=== PATIENT | male | born 1955 | race Caucasian/White ===

== ENCOUNTER → 2020-02-05 09:12 | Outpatient (CLI) | payer OTHER, SELFPAY ==
--- NOTE | ~2020-02-05 | XR_ITS ---
EXAMINATION: XR knee LT min 4V DATE: 02/05/2020 09:37 INDICATION: Left knee pain. TECHNIQUE: 4 views of left knee were obtained. COMPARISON: None. FINDINGS: Bone alignment is normal. No fracture. There is mild tricompartmental osteoarthritis. There is a moderate-sized knee joint effusion. There is a 6 mm loose body in the posterior knee joint. IMPRESSION: 1. Mild left knee osteoarthritis. 2. Moderate-sized knee joint effusion with loose body. Reviewed, dictated and finalized at location A.
== END ==
PROVIDERS: PCP Family Medicine; Visit Provider Physician Assistant
DX: M17.12 Unilateral primary osteoarthritis, left knee (principal); M25.462 Effusion, left knee
CPT/HCPCS: 73564

== ENCOUNTER 2020-04-28 08:41 | Outpatient (NON) | payer OTHER, SELFPAY ==
[2020-04-28 20:58] LABS: SARS-CoV-2 RNA PCR Negative
== END 2020-04-28 08:42 ==
LOC: ANHCOVIDDT 08:43
PROVIDERS: PCP Family Medicine; Visit Provider Family Medicine
DX: R68.89 Other general symptoms and signs (principal); Z20.828 Contact with and (suspected) exposure to other viral communicable diseases
CPT/HCPCS: 87635; C9803; U0003

== ENCOUNTER 2022-03-04 12:02 | Outpatient (CLI) | payer MEDICARE, SELFPAY ==
--- NOTE | 2022-03-04 13:03 | ECG_ITS ---
Measurements Intervals [place] Rate: 76 P: -13 CA: 141 QRS: -39 QRSD: 101 T: 30 QT: 354 QTc: 400 Interpretive Statements SINUS RHYTHM LEFT AXIS DEVIATION INCOMPLETE RIGHT BUNDLE BRANCH BLOCK BASELINE ARTIFACT- I, II, III, AVR, AVL, AVF BORDERLINE ECG NO PREVIOUS ECG AVAILABLE FOR COMPARISON Electronically Signed On 03-04-2022 13:29:04 CDT by Paulie Tapia D.O.
[2022-03-04 13:31] LABS: Basophils Percent Auto 0.9 % (0.2-1.2); Eosinophils Absolute Auto 0.1 K/mm3 (0-0.3); Eosinophils Percent Auto 3.1 % (0-4.4); Hematocrit 48.7 % (42.0-52.0); Hemoglobin 16.3 g/dL (14.0-18.0); Immature Granulocyte Absolute 0.03 K/mm3 (0.00-0.031); Immature Granulocyte Percent A 0.7 % (0-0.5); Lymphocytes Absolute Auto 1.31 K/mm3 (0.9-3.2); Lymphocytes Percent Auto 29.3 % (18.3-44.2); Mean Corpuscular HGB Conc 33.5 g/dl (32-36); Mean Corpuscular Hemoglobin 31.2 pg (26-34); Mean Corpuscular Volume 93.1 fl (80-100); Monocytes Absolute Auto 0.8 K/mm3 (0.1-0.6); Monocytes Percent Auto 18.8 % (2.6-8.5); Neutrophils Absolute Auto 2.1 K/mm3 (1.3-6.7); Neutrophils Percent Auto 47.2 % (45.5-73.1); Platelet Count Result 190 k/mm3 (150-375); Red Blood Count 5.23 M/mm3 (4.6-6.20); Red Cell Distribution Width 12.5 % (11.5-14.5); White Blood Count 4.5 K/mm3 (4.5-10.0)
[2022-03-04 13:48] LABS: Albumin Level 4.6 g/dL (3.5-5.1); Anion Gap 13 mmol/L (8-16); Blood Urea Nitrogen 10 mg/dL (9-20); Calcium 9.2 mg/dL (8.4-10.2); Carbon Dioxide 29 mmol/L (22-30); Chloride 99 mmol/L (98-107); Estimated Glomerular Filt Rate > 60; Glucose 98 mg/dL (65-110); Potassium 4.1 mmol/L (3.4-5.0); Sodium 141 mmol/L (137-145)
[2022-03-04 13:51] LABS: Urine Cotinine NEGATIVE
== END 2022-03-04 12:03 | disposition home or self-care (01) ==
LOC: ANHSURGERY 12:09
PROVIDERS: PCP Family Medicine; Visit Provider Orthopaedic Surgery
DX: M17.12 Unilateral primary osteoarthritis, left knee (principal); Z01.818 Encounter for other preprocedural examination
CPT/HCPCS: 80048; 80307; 82040; 85025; 87070; 87147; 87181; 87186; 93005

== ENCOUNTER 2022-03-24 01:23 | Day surgery (SDC) | payer MEDICARE, SELFPAY ==
--- NOTE | 2022-03-04 11:38 | PC.NURSE ---
PRE-OP INSTRUCTIONS, PLEASE READ CAREFULLY Report to the Outpatient Waiting Room, entrance under the green pavilion located off [facility], at time _1000_ on date _03/24/22_. OR Time: _1200_. PACK A SMALL OVERNIGHT BAG AND LEAVE IN THE CAR ALONG WITH YOUR WALKER. Time changes happen often and if your time is changed the preop area will call you the afternoon before. - You and your visitor will be asked to self-screen and do not enter if you have any COVID symptoms. - A mask is required within the hospital. - Only one visitor and NO children visitors are allowed at this time. - The patient visitor is requested to leave or wait in car when not with patient due to restrictions. - VISITING HOURS 10AM-8PM, PARK IN FRONT PARKING LOT AND USE MAIN HOSPITAL ENTRANCE 1 Patients may have clear liquids (water, carbonated beverages, clear teas, apple juice) until 3 hours prior to surgery (0900 AM) with a maximum of 20 ounces. - No food from midnight until time of surgery Take the following medications with a SIP of water the morning of surgery: _TYLENOL IF NEEDED_ Medications to discontinue per physician _ALEVE 7 DAYS PRIOR TO SURGERY_, Date to take last dose 03/16/22_ Please no deodorant, or body powder the day of surgery. No jewelry (including any body piercings) or valuables the day of surgery, leave them at home. Please take a shower or bath the night before, or the morning of, surgery with an antibacterial soap. Wear comfortable, loose fitting clothing. - Jewelry must be removed prior to entering the operating room. Rings and piercings that are not removed may be cut off. - The hospital will not accept responsibility for valuables. - Please leave all valuables, including medications, at home the day of surgery. If you are going home after surgery, a licensed delivery truck driver heavy must drive you home. - NO public transportation without another adult. - We recommend that an adult stay with you for 24 hours following discharge. - We also recommend that you do not drive, make important decision, drink alcoholic beverages, or take any drugs that were not prescribed by your health care provider for at least 24 hours after your discharge time. Follow any additional instructions given to you from your surgeon. If you or anyone in your household have experienced Covid symptoms in the past week, please notify your surgeon or the nurse liaison at the phone number below for possible testing. Instructions given to _PT & SPOUSE (ISA) _and asked if any additional questions and then verbalized understanding. Patient advised to call surgeon office or pre surgery nurse liaison [phone] if any additional questions.
[2022-03-04 12:36] VITALS: BP 164/78; PULSE 74; RESP 20; TEMP 37.4; O2SAT 97; BMI 32.4
--- NOTE | 2022-03-22 12:55 | PM.IMHP ---
H&P: HPI History of Present Illness Date/Time: 03/22/22 12:55 <BRIE Bowie - Last Filed: 03/22/22 13:00> Chief Complaint: Left knee DJD <BRIE Bowie - Last Filed: 03/22/22 13:00> Narrative: 66-year-old male who presents today for left total knee arthroplasty. She has been having pain in his knee for years. He has been getting cortisone injections and using [id number] anti-inflammatories. He has had continued symptoms in the knee. Nonsurgical treatment is not working well for him. He has pain on a daily basis which is affecting his daily lifestyle. He has severe medial compartment osteoarthritis in the left knee and feels at this point is ready to proceed with total knee arthroplasty rather continue nonsurgical treatment. His last shot been over 5 months ago. <BRIE Bowie - Last Filed: 03/22/22 13:00> Review of Systems Review of Systems: All systems reviewed & are unremarkable except as noted in HPI and below <BRIE Bowie - Last Filed: 03/22/22 13:00> [facility] Past Medical History Medical History: Medical History (Updated 03/24/22 @ 08:05 by Demario Powell DO) Arthritis of knee, left Erectile dysfunction Hypertension Restless leg syndrome Sleep apnea in adult Vertigo <BRIE Bowie - Last Filed: 03/22/22 13:00> Family History Family History: Family History Father Diabetes mellitus Hypertension Family history of malignant neoplasm Sibling Family history of elevated blood lipids Mother Family history of cardiovascular disease Family history of coronary artery disease Other Family history of arthritis Family history of lung disease <BRIE Bowie - Last Filed: 03/22/22 13:00> Social History Social History: Social History Smoking status: Never smoker Second hand tobacco smoke exposure: No Additional smoking assessment comments: PT DENIES ALL FORMS OF TOBACCO USE Alcohol intake: current Drinks per week: 3 Substance use: never Substance use type: does not use Living arrangements: with family Gender identity (if verbalized by the patient): Male Spiritual care concerns: No <BRIE Bowie - Last Filed: 03/22/22 13:00> Meds Home Medications and Allergies Home medications: Home Medications Medication Instructions Recorded Confirmed Type tadalafil 20 mg tablet (Cialis) 20 mg PO DAILY PRN sexual activity 12/31/20 03/24/22 Rx #27 tabs olmesartan 40 mg tablet 40 mg PO DAILY #90 tabs 01/15/22 03/24/22 Rx acetaminophen 500 mg tablet 1,000 mg PO QID PRN Pain 03/04/22 03/24/22 History naproxen sodium 220 mg tablet 220 mg PO Q12H PRN Pain 03/04/22 03/24/22 History (Aleve) rabeprazole 20 mg tablet,delayed 20 mg PO EVERY OTHER DAY 03/04/22 03/24/22 History release <BRIE Bowie - Last Filed: 03/22/22 13:00> Allergies/Adverse reactions: Allergies Allergy/AdvReac Type Severity Reaction Status Date / Time lisinopril Allergy Unknown Cough Verified 03/24/22 11:23 <BRIE Bowie - Last Filed: 03/22/22 13:00> Exam Narrative: 66-year-old male alert pleasant. He is 6 ft 3 and 258 lb. Left knee range of motion is from 3-130 degrees. Moderately large effusion. Hip range motion is full without discomfort, negative Stinchfield maneuver. Normal quad strength. Normal sensation. Mild varus alignment when he walks. 2+ dorsalis pedis and posterior artery pulse. There is no edema in either lower extremity. Mild tenderness over the medial joint line palpation moderately severe pain with patellofemoral grind. <BRIE Bowie - Last Filed: 03/22/22 13:00> Resp: Auscultation: clear to auscultation bilaterally <BRIE Bowie - Last Filed: 03/22/22 13:00> Cardio: Rate: regular rate <BRIE Bowie - Last Filed: 03/22/22 13:00> Rhythm: r
[2022-03-24] VITALS (8 sets, daily range): BP systolic 140–168; BP diastolic 79–98; PULSE 83–105; RESP 16–18; TEMP 36.4–36.5; O2SAT 96–100; BMI 33.1
--- NOTE | ~2022-03-24 | XR_ITS ---
EXAM: XR knee LT 2V DATE: 03/24/2022 18:22 HISTORY: LT TOTAL KNEE POST OP . COMPARISON: 02/05/2020. FINDINGS: Interval left knee total arthroplasty, hardware components are in good position, no compli cation detected. Postsurgical changes in the soft tissues. No unexpected radiopaque foreign body. IMPRESSION: Expected postsurgical changes, with no radiographic evidence of procedure or hardware rel ated complication. Reviewed, dictated and finalized at location K. IMPRESSION: Expected postsurgical changes, with no radiographic evidence of pro cedure or hardware related complication.
--- NOTE | 2022-03-24 08:04 | WPDANESEPPF ---
Anes - Initial Pre Proc Eval Procedure: Operation Date: 03/24/22 12:00 Proposed Procedures p Left Total Knee Arthroplasty - Paco Rodriguez MD Date/Time: 03/24/22 08:04 Surgeon: Paco Rodriguez MD Pre Op Diagnosis: Lt Knee O.A. Patient Data Age: 66 Gender: M Height: 1.91 m Weight: 117.8 kg Last Vital Signs Temp 37.4 C 03/04/22 12:36 Pulse 74 03/04/22 12:36 Resp 20 03/04/22 12:36 BP 164/78 H 03/04/22 12:36 Pulse Ox 97 03/04/22 12:36 O2 Del Method Room Air 03/04/22 12:36 Allergies Allergy/AdvReac Type Severity Reaction Status Date / Time lisinopril Allergy Unknown Cough Verified 03/24/22 11:23 Home Medications Medication Instructions Recorded Confirmed Type tadalafil 20 mg tablet (Cialis) 20 mg PO DAILY PRN sexual activity 12/31/20 03/24/22 Rx #27 tabs olmesartan 40 mg tablet 40 mg PO DAILY #90 tabs 01/15/22 03/24/22 Rx acetaminophen 500 mg tablet 1,000 mg PO QID PRN Pain 03/04/22 03/24/22 History naproxen sodium 220 mg tablet 220 mg PO Q12H PRN Pain 03/04/22 03/24/22 History (Aleve) rabeprazole 20 mg tablet,delayed 20 mg PO EVERY OTHER DAY 03/04/22 03/24/22 History release Patient hx anesthesia problems: none Family hx anesthesia problems: none Results Review: All pre-operative results and documents have been reviewed as part of the pre-operative evaluation. ON LICENSE OF [facility] Past Medical History Medical History (Updated 03/24/22 @ 08:05 by Demario Powell DO) Arthritis of knee, left Erectile dysfunction Hypertension Restless leg syndrome Sleep apnea in adult Vertigo Family History Family History Father Diabetes mellitus Hypertension Family history of malignant neoplasm Sibling Family history of elevated blood lipids Mother Family history of cardiovascular disease Family history of coronary artery disease Other Family history of arthritis Family history of lung disease Social History Social History Smoking status: Never smoker Second hand tobacco smoke exposure: No Additional smoking assessment comments: PT DENIES ALL FORMS OF TOBACCO USE Alcohol intake: current Drinks per week: 3 Substance use: never Substance use type: does not use Living arrangements: with family Gender identity (if verbalized by the patient): Male Spiritual care concerns: No Anes - Eval Final PreProcedure Day of Procedure 03/24/22 08:04 Patient weight: obese Heart: regular rate and rhythm Lungs: clear to auscultation Airway: Mallampati scale class II Neurological: alert and oriented Last oral intake: >/= 8 hours ASA classification: III Emergent: no Anesthetic plan: proceed Anesthesia type and monitoring: general ETT and standard monitoring Results Review: All pre-operative results and documents have been reviewed as part of the pre-operative evaluation. Informed Consent: The patient's anesthetic plan and its attendant risks and benefits were discussed with the patient/family/POA. Questions were solicited and answers provided to the satisfaction of the patient/family/POA.
[2022-03-24] MEDS: ACETAMINOPHEN 500 MG TABLET 1000 MG PO ×2 (10:41→20:28)
[2022-03-24] MEDS: TRANEXAMIC ACID 1,000MG/ISO100 1,000 MG/100 ML BAG 200 MG IVPB (10:45)
[2022-03-24] MEDS: LACTATED RINGERS 1,000 ML 30 ML IV CONT ×2 (10:45→18:10)
--- NOTE | 2022-03-24 13:03 | WPDHPUPDATE1 ---
History and Physical Update Update Date/Time: 03/24/22 13:03 History and Physical has been reviewed, including an updated exam of the patient. There are NO changes in the patient's condition. Risks, benefits, and alternatives have been discussed and questions answered. Patient agrees to proceed with procedure.
[2022-03-24] MEDS: ceFAZolin 2 GM/D5W 50 ML 2 GM/50 ML BAG IVPB (13:43)
[2022-03-24] MEDS: ceFAZolin SODIUM 1 GM VIAL 3 GM (14:15)
[2022-03-24] MEDS: GENTAMICIN BONE CEMENT REFOBACIN 1 EACH TOPICAL (15:56)
[2022-03-24] MEDS: TRANEXAMIC ACID 1,000 MG/10 ML AMPUL 1000 MG IV PUSH (16:22)
[2022-03-24] MEDS: ceFAZolin SODIUM 1 GM VIAL 2 GM IV PUSH (16:25)
--- NOTE | 2022-03-24 17:54 | W.PM.PROC2 ---
Procedure Note - Detailed Date of Procedure 03/24/22 Pre-op Diagnosis Lt Knee O.A. Post-op Diagnosis Same Procedure Performed Left total knee arthroplasty Surgeon Paco Rodriguez MD Embossed Or Impressed Lettering Painter Ceci Mariano Description of Procedure Patient was brought to the operating room and general anesthesia was administered. He received 2 g Ancef weight based vancomycin 1 g of tranexamic acid preoperatively left knee prepped draped usual fashion. Limb was exsanguinated tourniquet elevated to 275 mmHg. An 8 in longitudinal midline incision was used and a standard parapatellar arthrotomy utilized. Infrapatellar and suprapatellar fat pads were excised a quadriceps synovectomy carried out. The patella had central osteoarthritis. It measured 25 and 0.5 mm in thickness and was cut to 17 mm. Protector cap was applied. A guide thelma was inserted on the femoral canal after aspiration of canal contents using the 5 degree valgus valgus cutting bushing 9 mm of bone removed the distal femur. The guide rested on the area of eburnated bone in the medial femoral condyle and removed 9 mm from lateral side as well. Next the tibial plateau was cut. We made a skin cut off the low point of the medial tibial plateau which removed 10 mm from lateral side. Meniscal remnants were excised PCL recessed. In flexion, the medial side was 7 mm lateral side 13 mm so there was a fairly significant imbalance at 90?. The lateral capsule remained intact on the tibia. The femoral sizing guide was applied to the distal femur set at 5? of external rotation which matched Whitesides line. Posterior referencing pinholes were placed and the 75 femoral cutting guide was applied AP and chamfer cuts were made. This gave a line to line fit on the anterior cortex and medial to lateral. We trialed with the 10 CR insert and found that the medial side was tighter than the lateral side. We removed medial tibial osteophyte. The tibia was sized to a size 79 vanguard proper rotation set and this fit line to line posterolateral to anteromedial. This was punched. Additional posteromedial femoral osteophyte was removed at this time with a conservative posterior medial capsule release enough to expose the osteophyte and safely remove this. We trialed with the 10 insert and found that we lacked about 5? of extension with plate laterally no plate medially. At 90? the medial side was too tight lateral side opened up 2 mm. I elected to reapply the tibial cutting guide in 1 degree of varus to shave 1 mm of bone off the medial tibial plateau and this was transitioned to the lateral plateau. We took care to make sure that this gave us a perfectly flat tibial surface and there was no rocking of the tibial tray trial and with this pin in place again we pre reamed and punched for the fin punch. This time on trialing the 10 insert there was appropriate anterior drawer 1 mm medial opening at 90? 2 lateral and gravity flexion to 135 without lift-off. At this point we lacked about 2? of extension with no plate medially and 2-3 laterally. Therefore as we had also removed posterior femoral osteophyte previously, we proceeded to remove an additional mm of bone from the distal femur. We had not performed a formal capsular release on the femur at this time. On read trialing with a 10 insert now the knee came out to full extension with a mm of medial opening in full extension and 2-3 lateral opening full extension negative bounce. Lug holes were drilled for the femoral component. The patella was sized to the 37 thin which restored the 25.5 mm thickness. We had put the tourniquet down at 95 minutes and I assessed patellar tracking this time which was suboptimal but proper rotation of femoral and tibial components was observed. Limb was exsanguinated tourniquet elevated again to 260 mmHg. A step drill was used to make numerous perforations in the tibial plateau and distal femur for cement interdigitation this bony surfaces were thoroughly
[2022-03-24] MEDS: fentaNYL CITRATE INJ (*CRX) 100 MCG/2 ML VIAL 25 MCG IV PUSH ×8 (18:22→19:12)
--- NOTE | 2022-03-24 19:37 | ADMGEN ---
This patient, Madhu Mendez Bibiana, was admitted to 2 Medical Room 259-01. Patient/family oriented to hospital policies and general routines including ID bracelet, bed and alarms, visiting hours, pain management, procedures, bathroom and other care routines, personal items, smoking policy, room service/diet, and visiting hours. Information on how to activate the Rapid Response Team has been discussed. Patient/Family are encouraged to report perceived risks to care and to ask questions if they do not understand what they are told or what they should do. pt transferred from PACU to 259 via bed at 1930
[2022-03-24] MEDS: oxyCODONE HCL (*CRX) 5 MG TAB IR PO ×3 (20:02→23:42)
[2022-03-24] MEDS: KETOROLAC 15 MG/ML VIAL (*BKC) IV PUSH (20:03)
[2022-03-24] MEDS: SODIUM CHLORIDE 0.9% IV 1,000 ML 125 ML IV CONT (20:05)
[2022-03-25] MEDS: ceFAZolin 2 GM/D5W 50 ML 2 GM/50 ML BAG IVPB ×3 (01:04→16:21)
[2022-03-25] MEDS: KETOROLAC 15 MG/ML VIAL (*BKC) IV PUSH (01:05)
[2022-03-25] MEDS: ACETAMINOPHEN 500 MG TABLET 1000 MG PO ×3 (01:31→13:40)
[2022-03-25 02:29] VITALS: BP 157/97; PULSE 125; RESP 18; TEMP 36.6; O2SAT 97
[2022-03-25] MEDS: oxyCODONE HCL (*CRX) 5 MG TAB IR PO ×5 (05:03→16:23)
[2022-03-25 06:10] LABS: Basophils Percent Auto 0.1 % (0.2-1.2); Hematocrit 41.5 % (42.0-52.0); Hemoglobin 14.1 g/dL (14.0-18.0); Immature Granulocyte Absolute 0.08 K/mm3 (0.00-0.031); Immature Granulocyte Percent A 0.5 % (0-0.5); Lymphocytes Absolute Auto 0.87 K/mm3 (0.9-3.2); Lymphocytes Percent Auto 5.8 % (18.3-44.2); Mean Corpuscular Hemoglobin 31.3 pg (26-34); Mean Platelet Volume 10.3 fl (7.4-10.4); Monocytes Absolute Auto 1.4 K/mm3 (0.1-0.6); Monocytes Percent Auto 9.5 % (2.6-8.5); Neutrophils Absolute Auto 12.6 K/mm3 (1.3-6.7); Neutrophils Percent Auto 84.1 % (45.5-73.1); Platelet Count Result 217 k/mm3 (150-375); Red Blood Count 4.51 M/mm3 (4.6-6.20); Red Cell Distribution Width 12.5 % (11.5-14.5)
[2022-03-25 06:19] LABS: Anion Gap 14 mmol/L (8-16); Blood Urea Nitrogen 11 mg/dL (9-20); Calcium 8.2 mg/dL (8.4-10.2); Carbon Dioxide 24 mmol/L (22-30); Chloride 101 mmol/L (98-107); Estimated CRCL calculation 128 ml/min; Estimated Glomerular Filt Rate > 60; Glucose 148 mg/dL (65-110); Potassium 3.7 mmol/L (3.4-5.0); Sodium 139 mmol/L (137-145)
[2022-03-25 06:57] VITALS: BP 146/91; PULSE 98; RESP 18; TEMP 36.8; O2SAT 96
--- NOTE | 2022-03-25 07:34 | PM.PNORT ---
Subjective Subjective Date/Time Seen: 03/25/22 07:34 Postop day 1 patient is alert. Afebrile vital signs are stable. Morning labs are noted. His dressing is dry and intact. Patient has been on multiple times of rest from overnight. Overall pain is well controlled. Neurovascularly he is intact. He is able to straight leg raise morning. We will plan to have patient work with physical therapy today if he continues to do well plan to discharge him home this afternoon Objective Data Vital Signs Vital Signs: Vital Signs - 24 hr 03/24/22 11:00 03/24/22 18:10 03/24/22 18:25 Temperature 36.4 C L 36.5 C Pulse Rate 83 92 100 Respiratory Rate 16 16 16 Blood Pressure 153/79 H 144/98 H 141/91 H Pulse Oximetry 100 99 100 Oxygen Delivery Room Air Simple Face Mask Simple Face Mask Oxygen Flow Rate 6 6 03/24/22 18:40 03/24/22 18:50 03/24/22 18:55 Temperature Pulse Rate 96 93 Respiratory Rate 16 16 Blood Pressure 150/89 H 168/89 H Pulse Oximetry 100 96 Oxygen Delivery Simple Face Mask Room Air Room Air Oxygen Flow Rate 6 03/24/22 19:10 03/24/22 19:20 03/24/22 22:28 Temperature 36.5 C Pulse Rate 89 83 105 H Respiratory Rate 16 16 18 Blood Pressure 141/90 H 140/89 159/96 H Pulse Oximetry 96 96 97 Oxygen Delivery Room Air Room Air Oxygen Flow Rate 03/25/22 02:29 03/25/22 06:57 Temperature 36.6 C 36.8 C Pulse Rate 125 H 98 Respiratory Rate 18 18 Blood Pressure 157/97 H 146/91 H Pulse Oximetry 97 96 Oxygen Delivery Oxygen Flow Rate Intake/Output Intake/Output: Intake & Output 03/22/22 03/23/22 03/24/22 03/25/22 23:59 23:59 23:59 23:59 Intake Total 700 1200 Output Total 950 Balance -250 1200 Meds/Results Medications: Active Medications Generic Name Dose Route Start Last Admin Trade Name Freq PRN Reason Stop Dose Admin Acetaminophen 1,000 mg 03/24/22 20:00 03/25/22 01:31 Acetaminophen 500 Mg Tablet PO 1,000 mg Q6H FRANCOISE Administration Apixaban 2.5 mg 03/25/22 09:00 Apixaban 2.5 Mg Tablet PO 04/05/22 21:01 Q12HR [facility] Celecoxib 200 mg 03/25/22 08:00 Celecoxib 200 Mg Capsule PO DAILY@0800 [facility] Cephalexin HCl 500 mg 03/25/22 18:00 Cephalexin 500 Mg Capsule PO Q6HR [facility] Cefazolin Sodium 2 gm in 50 mls @ 100 mls/hr 03/25/22 01:00 03/25/22 01:34 Ancef 2 Gm/D5w 50 Ml IVPB 03/25/22 17:29 Infused Q8H [facility] Infusion Vancomycin HCl 1,000 mg in 250 mls @ 250 mls/hr 03/24/22 23:00 03/24/22 23:47 Vancomycin 1,000 Mg/D5w 250 Ml IVPB 03/25/22 11:59 Infused Q12H [facility] Infusion Morphine Sulfate 2 mg 03/24/22 19:20 Morphine Sulfate (*Crx) 2 Mg/Ml Inj IV PUSH Q1H PRN Pain Rated 7-10 Naloxone HCl 0.1 mg 03/24/22 19:20 Naloxone Hcl 0.4 Mg/Ml Vial IV PUSH Q2M PRN Opiate Reversal Non-Formulary Medication 20 mg 03/24/22 19:20 Tadalafil [Cialis] PO DAILY PRN sexual activity Olmesartan 40 mg 03/25/22 09:00 Olmesartan Medoxomil 20 Mg Tablet PO 04/24/22 08:59 DAILY FRANCOISE Oxycodone HCl 5 mg 03/24/22 20:00 03/25/22 05:03 Oxycodone Hcl (*Crx) 5 Mg Tab Ir PO 5 mg Q4H FRANCOISE Administration Oxycodone HCl 5 mg 03/24/22 19:20 03/25/22 05:03 Oxycodone Hcl (*Crx) 5 Mg Tab Ir PO 5 mg Q4H PRN Administration Pain Rated 4-10 Pantoprazole Sodium 40 mg 03/25/22 09:00 Pantoprazole 40 Mg Tablet PO Q48H [facility] Polyethylene Glycol 17 gm 03/25/22 09:00 Polyethylene Glycol 3350 17 Gm Powd.Pack PO QAM [facility] Senna/Docusate Sodium 2 tab 03/25/22 09:00 Senna/Docusate Sodium Tablet PO BID [facility] Radiology Results: ITS Impressions Knee X-Ray 10/19/22 18:47 IMPRESSION: Expected postsurgical changes, with no radiographic evidence of procedure or hardware related complication. Labs Labs: Laboratory Results - last 24 hr 03/24/22 03/25/22 03/25/22 11:00 05:52 05:52 WBC 15.0 H RBC 4.51 L Hgb 14.1 Hct 41.5 L
--- NOTE | 2022-03-25 07:38 | PM.DS ---
DS: Admitting Diagnosis Discharge Date 03/25 Admitting Diagnosis left knee DJD DS: Discharge Diagnosis Discharge Diagnosis (1) Total knee replacement status: Code(s): Z96.659 - Presence of unspecified artificial knee joint Status: Acute Plan 66-year-old male who underwent left total knee arthroplasty on 03/24. Underwent the procedure without any complications. Postoperatively he has been afebrile vital signs are stable. Patient was up to the restroom multiple times overnight on the day of surgery. Pain is well controlled with scheduled Tylenol as well as the oxycodone 5 mg. He is also on Celebrex 200 mg once a day. He is on Eliquis for DVT prophylaxis. He is weight-bearing as tolerated. His dressing is dry. Neurovascular is intact overall patient is doing very well. He will be discharged home on 03/25. Patient was advised to keep leg elevated at home prevent swelling but he was exercises on his knee on an hourly basis at home. He has outpatient therapy starting next Tuesday. He will go home on a 12 day course of Keflex due to his positive nasal swab for OS SA. He will also go home on Senokot and MiraLax for constipation. Patient was advised any questions or concern he is to call the office otherwise we will see him at his appointment date. DS: Summary Hospital Course Hospital Course: stable Time Spent with Patient Time attestation: Total time spent providing and/or coordinating discharge services: DS: Data Data Completed and Pending Labs on day of discharge: Labs from last 24 hours 03/25/22 03/25/22 03/24/22 05:52 05:52 11:00 WBC 15.0 H RBC 4.51 L Hgb 14.1 Hct 41.5 L MCV 92.0 MCH 31.3 MCHC 34.0 RDW 12.5 Plt Count 217 MPV 10.3 Immature Gran % (Auto) 0.5 Neut % (Auto) 84.1 H Lymph % (Auto) 5.8 L Floyd % (Auto) 9.5 H Eos % (Auto) 0.0 Baso % (Auto) 0.1 L Lymph # (Auto) 0.87 L Floyd # (Auto) 1.4 H Eos # (Auto) 0.0 Baso # (Auto) 0.0 Abs Immat Gran (auto) 0.08 H Absolute Neuts (auto) 12.6 H Absolute Nucleated RBC 0.0 Nucleated RBC % 0.0 Sodium 139 Potassium 3.7 Chloride 101 Carbon Dioxide 24 Anion Gap 14 BUN 11 Creatinine 0.70 Estim Creat Clear Calc 128 Estimated GFR > 60 Glucose 148 H Calcium 8.2 L Blood Type A Positive Antibody Screen Negative Discharge Plan Discharge Patient Disposition: Home, Self-Care Discharge Instructions: JUDITH LANG M.D [facility], [place] [address] [place] [address] POST-OPERATIVE DISCHARGE INSTRUCTIONS TOTAL KNEE ARTHROPLASTY 1. When resting, lie on back with leg elevated above heart to minimize swelling. Significant swelling could indicate a blood clot and if this occurs call the office (or go to the ER) to have a venous ultrasound. 2. Do exercise 5 times a day. 3. Do not sit with leg down except for meals. 4. Wound Care: Nursing will give additional dressings at discharge. Patient to change dressing at home 1 week from surgery, then maintain until seen in office. 5. May shower with dressing in place. 6. Follow weight bearing status instructions. IMPORTANT: Remember not to sit in the chair for more than 30 minutes at a time. As a rule, during the first 14 days after surgery, only sit in the chair to work on the chair knee bending stretch exercise, for meals or for use of the restroom. Sitting in the chair promotes significant swelling in the knee and leg which will make the knee stiff and more painful and which simulates having a blood clot in the veins of the leg. If this type of significant diffuse swelling occurs, an ultrasound at the hospital will be necessary to rule out a blood clot. Be up walking around with the walker for a few minutes every hour while awake and then rest laying on your back on the couch or in bed with your leg elevated on cushions or pi
--- NOTE | 2022-03-25 07:49 | P.PNAN_ITS ---
Anes - Prog Note Post-Op Date/Time: 03/25/22 07:49 Cardiovascular status: normal Respiratory status: normal Airway patency: baseline Mental status: baseline Post-Op hydration status: normal Vital Signs: Last Vital Signs Temp 36.8 C 03/25/22 06:57 Pulse 98 03/25/22 06:57 Resp 18 03/25/22 06:57 BP 146/91 H 03/25/22 06:57 Pulse Ox 96 03/25/22 06:57 O2 Del Method Room Air 03/24/22 19:20 O2 Flow Rate 6 03/24/22 18:40 Pain Score (VAS): 0 I/O: Intake & Output 03/24/22 03/24/22 03/25/22 15:59 23:59 07:59 Intake Total 50 650 1200 Output Total 950 Balance 50 -300 1200 Laboratory Tests 03/25/22 05:52 03/25/22 05:52 03/24/22 03/25/22 03/25/22 11:00 05:52 05:52 WBC 15.0 H RBC 4.51 L Hgb 14.1 Hct 41.5 L MCV 92.0 MCH 31.3 MCHC 34.0 RDW 12.5 Plt Count 217 MPV 10.3 Immature Gran % (Auto) 0.5 Neut % (Auto) 84.1 H Lymph % (Auto) 5.8 L [place] % (Auto) 9.5 H Eos % (Auto) 0.0 Baso % (Auto) 0.1 L Lymph # (Auto) 0.87 L [place] # (Auto) 1.4 H Eos # (Auto) 0.0 Baso # (Auto) 0.0 Abs Immat Gran (auto) 0.08 H Absolute Neuts (auto) 12.6 H Absolute Nucleated RBC 0.0 Nucleated RBC % 0.0 Sodium 139 Potassium 3.7 Chloride 101 Carbon Dioxide 24 Anion Gap 14 BUN 11 Creatinine 0.70 Estim Creat Clear Calc 128 Estimated GFR > 60 Glucose 148 H Calcium 8.2 L Blood Type A Positive Antibody Screen Negative Post-procedural complaints: none Patient Feedback: Patient satisfied with anesthetic care.
[2022-03-25] MEDS: SENNA/DOCUSATE SODIUM TABLET 2 TAB PO ×2 (08:00→16:23)
[2022-03-25] MEDS: OLMESARTAN MEDOXOMIL 20 MG TABLET 40 MG PO (08:01)
[2022-03-25] MEDS: CELECOXIB 200 MG CAPSULE PO (08:01)
[2022-03-25] MEDS: PANTOPRAZOLE 40 MG TABLET PO (08:01)
[2022-03-25] MEDS: APIXABAN 2.5 MG TABLET PO (08:01)
[2022-03-25] MEDS: polyethylene glycoL 3350 17 GM POWD.PACK PO (08:02)
[2022-03-25 10:12] VITALS: BP 126/74; PULSE 104; RESP 18; TEMP 36.7; O2SAT 94
[2022-03-25 15:16] VITALS: BP 122/75; PULSE 88; RESP 18; TEMP 37.3; O2SAT 98
== END 2022-03-25 17:48 | disposition home or self-care (01) ==
LOC: ANHSURGERY 10:00 → ANH2MED 19:22
PROVIDERS: PCP Family Medicine; Visit Provider Orthopaedic Surgery
PROC: (CPT 27447; principal; 2022-03-24 12:00)
DX: M17.12 Unilateral primary osteoarthritis, left knee (principal); I10 Essential (primary) hypertension; G47.30 Sleep apnea, unspecified; E66.9 Obesity, unspecified; Z68.33 Body mass index [BMI] 33.0-33.9, adult
CPT/HCPCS: 27447; 36415; 73560; 80048; 85025; 86850; 86900; 86901; 97110; 97161; 97165; 97530; A9270; C1713; C1776; J0171; J0330; J0690; J1100; J1170; J1885; J2250; J2270; J2370; J2405; J2704; J2710; J2795; J3010; J3370; J7030; J7120

== ENCOUNTER 2022-03-26 11:12 | Outpatient (CLI) | payer MEDICARE, SELFPAY ==
--- NOTE | ~2022-03-26 | US_ITS ---
EXAMINATION: US venous doppler [facility] DATE: 03/26/2022 12:22 INDICATION: Left lower limb swelling TECHNIQUE: Burks scale images without and with compression and Doppler images of the left lower extrem ity veins were obtained. COMPARISON: 05/10/2014 FINDINGS: The left common femoral vein, profunda femoral vein, femoral vein, popliteal vein, peroneal trunk, posterior tibial veins, and greater saphenous vein are patent. A Calabrese's cyst is noted in the popliteal fossa. IMPRESSION: 1. Patent left lower extremity veins. No evidence of deep venous thrombosis. Reviewed, dictated and finalized at location B.
== END 2022-03-26 11:13 | disposition home or self-care (01) ==
LOC: ANHIMG 11:13
PROVIDERS: PCP Family Medicine; Visit Provider Orthopaedic Surgery
DX: M79.89 Other specified soft tissue disorders (principal)
CPT/HCPCS: 93971

== ENCOUNTER 2022-09-07 01:14 | Day surgery (SDC) | payer MEDICARE, SELFPAY ==
[2022-08-25 13:04] VITALS: BMI 30.3
[2022-09-07 06:44] VITALS: BP 159/88; PULSE 78; RESP 19; TEMP 36.3; O2SAT 99
[2022-09-07] MEDS: LACTATED RINGERS 1,000 ML 150 ML IV CONT (06:53)
[2022-09-07] MEDS: AMPICILLIN 2 GM/NS 100 ML 2 GM/100 ML BAG IVPB (06:54)
--- NOTE | 2022-09-07 07:28 | PM.HPGS ---
History of Present Illness History of Present Illness Consent: Risks, benefits, and alternatives have been discussed and questions answered. Patient agrees to proceed with procedure. Chief complaint: family history of colon cancer Narrative: Madhu Mendez Sr. is a 67 year old male Presents for screening colonoscopy. Patient's current weight appetite and bowel movements are normal. Patient denies abdominal pain. He has had no bleeding. Family history is significant that his brother has had colon cancer. Patient's previous colonoscopy was unremarkable. No polyps were identified at that time. Patient presents today for screening colonoscopy. Review of Systems Review of Systems: Review of systems noncontributory. [facility] Past Medical History Medical History Arthritis of knee, left Erectile dysfunction Hypertension Restless leg syndrome Sleep apnea in adult Vertigo Family History Family History Father Diabetes mellitus Hypertension Family history of malignant neoplasm Sibling Family history of elevated blood lipids Mother Family history of cardiovascular disease Family history of coronary artery disease Other Family history of arthritis Family history of lung disease Social History Social History Smoking status: Never smoker Second hand tobacco smoke exposure: No Additional smoking assessment comments: PT DENIES ALL FORMS OF TOBACCO USE Alcohol intake: current Drinks per week: 2 Substance use: never Substance use type: does not use Lack of Transportation: No Lack of Food: Never True Current Housing: I Have Housing Concerned About Future Housing: No Difficulty Paying Gas/Electric Bills: No Difficulty Paying for Meds: No Currently Unemployed: No Education: Associate Degree Difficulty w/ Childcare or Family Care: No Living arrangements: with family Gender identity (if verbalized by the patient): Male Spiritual care concerns: No Meds Home Medications and Allergies Home Medications Medication Instructions Recorded Confirmed Type olmesartan 40 mg tablet 40 mg PO DAILY #90 tabs 01/15/22 09/07/22 Rx rabeprazole 20 mg tablet,delayed 20 mg PO EVERY OTHER DAY #45 tabs 07/09/22 08/25/22 Rx release benzonatate 100 mg capsule 100 mg PO TID PRN cough #30 caps 08/23/22 08/25/22 Rx Allergies Allergy/AdvReac Type Severity Reaction Status Date / Time lisinopril AdvReac Unknown Cough Verified 09/07/22 06:42 Vital Signs Vital Signs - 24 hr 09/07/22 06:44 Temperature 97.4 F L Pulse Rate 78 Respiratory Rate 19 Blood Pressure 159/88 H Pulse Oximetry 99 Oxygen Delivery Room Air Exam Narrative: Physical exam reveals patient to be alert. Vital signs stable. HEENT exam is unremarkable. Patient is anicteric. Lungs are clear to auscultation and percussion. Heart is without murmur or extra sounds. Abdomen bowel sounds are present soft nontender with no organomegaly. Digital external rectal exam is normal. Assessment and Plan Assessment and plan (1) Family hx of colon cancer: Code(s): Z80.0 - Family history of malignant neoplasm of digestive organs Status: Acute Assessment and Plan: Patient has a family history of colon cancer in his brother. Plan for surveillance colonoscopy now and consider this at 5 year intervals in the future.
--- NOTE | 2022-09-07 07:31 | WPDANESEPPF ---
Anes - Initial Pre Proc Eval Procedure: Operation Date: 09/07/22 08:00 Proposed Procedures p Colonoscopy - Eric Alaniz MD Date/Time: 09/07/22 07:31 Surgeon: Eric Alaniz MD Pre Op Diagnosis: family history of colon cancer Patient Data Age: 67 Gender: M Height: 1.93 m Weight: 116.4 kg Last Vital Signs Temp 97.4 F L 09/07/22 06:44 Pulse 78 09/07/22 06:44 Resp 19 09/07/22 06:44 BP 159/88 H 09/07/22 06:44 Pulse Ox 99 09/07/22 06:44 O2 Del Method Room Air 09/07/22 06:44 Allergies Allergy/AdvReac Type Severity Reaction Status Date / Time lisinopril AdvReac Unknown Cough Verified 09/07/22 06:42 Home Medications Medication Instructions Recorded Confirmed Type olmesartan 40 mg tablet 40 mg PO DAILY #90 tabs 01/15/22 09/07/22 Rx rabeprazole 20 mg tablet,delayed 20 mg PO EVERY OTHER DAY #45 tabs 07/09/22 08/25/22 Rx release benzonatate 100 mg capsule 100 mg PO TID PRN cough #30 caps 08/23/22 08/25/22 Rx Patient hx anesthesia problems: none Family hx anesthesia problems: none Results Review: All pre-operative results and documents have been reviewed as part of the pre-operative evaluation. [facility] Past Medical History Medical History Arthritis of knee, left Erectile dysfunction Hypertension Restless leg syndrome Sleep apnea in adult Vertigo Family History Family History Father Diabetes mellitus Hypertension Family history of malignant neoplasm Sibling Family history of elevated blood lipids Mother Family history of cardiovascular disease Family history of coronary artery disease Other Family history of arthritis Family history of lung disease Social History Social History Smoking status: Never smoker Second hand tobacco smoke exposure: No Additional smoking assessment comments: PT DENIES ALL FORMS OF TOBACCO USE Alcohol intake: current Drinks per week: 2 Substance use: never Substance use type: does not use Lack of Transportation: No Lack of Food: Never True Current Housing: I Have Housing Concerned About Future Housing: No Difficulty Paying Gas/Electric Bills: No Difficulty Paying for Meds: No Currently Unemployed: No Education: Associate Degree Difficulty w/ Childcare or Family Care: No Living arrangements: with family Gender identity (if verbalized by the patient): Male Spiritual care concerns: No Anes - Eval Final PreProcedure Day of Procedure 09/07/22 07:31 Patient weight: obese Heart: regular rate and rhythm Lungs: clear to auscultation Airway: Mallampati scale class II Neurological: alert and oriented Last oral intake: >/= 8 hours ASA classification: III Emergent: no Anesthetic plan: proceed Anesthesia type and monitoring: general GIVS and standard monitoring Results Review: All pre-operative results and documents have been reviewed as part of the pre-operative evaluation. Informed Consent: The patient's anesthetic plan and its attendant risks and benefits were discussed with the patient/family/POA. Questions were solicited and answers provided to the satisfaction of the patient/family/POA.
[2022-09-07 08:13] VITALS: BP 117/73; PULSE 76; RESP 17; O2SAT 96
[2022-09-07 08:23] VITALS: BP 130/87; PULSE 90; RESP 23; O2SAT 96
[2022-09-07 08:33] VITALS: BP 127/83; PULSE 70; RESP 18; O2SAT 96
== END 2022-09-07 08:43 | disposition home or self-care (01) ==
PROVIDERS: PCP Family Medicine; Visit Provider Internal Medicine Gastroenterology
PROC: 0DJD8ZZ Inspection of Lower Intestinal Tract, Via Natural or Artificial Opening Endoscopic (ICD-10-PCS; CPT 45378; principal; 2022-09-07 08:00)
DX: Z12.11 Encounter for screening for malignant neoplasm of colon (principal); D12.2 Benign neoplasm of ascending colon; K64.8 Other hemorrhoids; Z80.0 Family history of malignant neoplasm of digestive organs; I10 Essential (primary) hypertension; E66.9 Obesity, unspecified; Z68.31 Body mass index [BMI] 31.0-31.9, adult
CPT/HCPCS: 45380; 88305; J0290; J2704; J7120

== ENCOUNTER 2023-04-04 14:38 | Outpatient (NON) | payer MEDICARE, SELFPAY | END 2023-04-04 14:39 | disposition home or self-care (01) | LOC: ANHLAB 14:38 | PROVIDERS: PCP Family Medicine; Visit Provider Nurse Practitioner | DX: C44.92 Squamous cell carcinoma of skin, unspecified (principal) | CPT/HCPCS: 88305; 88331 ==

== ENCOUNTER 2023-07-08 01:23 | Day surgery (SDC) | payer MEDICARE, SELFPAY ==
[2023-07-06 09:45] VITALS: BMI 33.3
--- NOTE | 2023-07-06 10:14 | SUR.PREOP ---
Patient called regarding upcoming procedure. Reviewed preop instructions, appointment times, and procedure prep.
[2023-07-08 09:58] VITALS: BP 157/87; PULSE 78; RESP 20; TEMP 36.6; O2SAT 99
[2023-07-08] MEDS: LACTATED RINGERS 1,000 ML 150 ML IV CONT (10:09)
--- NOTE | 2023-07-08 10:11 | WPDANESEPPF ---
Anes - Initial Pre Proc Eval Procedure: Operation Date: 07/08/23 11:00 Proposed Procedures p Esophagogastroduodenoscopy - Brandin Fatima MD Date/Time: 07/08/23 10:11 Surgeon: Brandin Fatima MD Pre Op Diagnosis: GERD, dysphagia Patient Data Age: 67 Gender: M Height: 1.92 m Weight: 121.1 kg Last Vital Signs Temp 97.8 F 07/08/23 09:58 Pulse 78 07/08/23 09:58 Resp 20 07/08/23 09:58 BP 157/87 H 07/08/23 09:58 Pulse Ox 99 07/08/23 09:58 O2 Del Method Room Air 07/08/23 09:58 Allergies Allergy/AdvReac Type Severity Reaction Status Date / Time lisinopril AdvReac Unknown Cough Verified 07/23/23 14:12 Home Medications Medication Instructions Recorded Confirmed Type olmesartan 40 mg tablet 40 mg PO DAILY #90 tabs 09/24/22 07/06/23 Rx sildenafil (pulm.hypertension) 20 20 mg PO DAILY PRN sexual activity 02/23/23 07/06/23 Rx mg tablet #30 tabs rabeprazole 20 mg tablet,delayed 20 mg PO EVERY OTHER DAY #45 tabs 05/13/23 07/06/23 Rx release Patient hx anesthesia problems: none Family hx anesthesia problems: none Results Review: All pre-operative results and documents have been reviewed as part of the pre-operative evaluation. [facility] Past Medical History Medical History Arthritis of knee, left Chronic GERD Erectile dysfunction Hypertension Lump in throat Restless leg syndrome Sleep apnea in adult Vertigo Family History Family History Father Diabetes mellitus Hypertension Family history of malignant neoplasm Sibling Family history of elevated blood lipids Mother Family history of cardiovascular disease Family history of coronary artery disease Other Family history of arthritis Family history of lung disease Social History Social History Social History: Caffeine-coffee Smoking status: Never smoker Second hand tobacco smoke exposure: No Additional smoking assessment comments: PT DENIES ALL FORMS OF TOBACCO USE Alcohol intake: current Drinks per week: 2 Substance use: never Substance use type: does not use Lack of Transportation: No Lack of Food: Never True Current Housing: I Have Housing Concerned About Future Housing: No Difficulty Paying Gas/Electric Bills: No Difficulty Paying for Meds: No Currently Unemployed: No Education: Associate Degree Difficulty w/ Childcare or Family Care: No Living arrangements: with family Gender identity (if verbalized by the patient): Male Spiritual care concerns: No Anes - Eval Final PreProcedure Day of Procedure 07/08/23 10:11 Patient weight: obese Heart: regular rate and rhythm Lungs: clear to auscultation Airway: Mallampati scale class III Neurological: alert and oriented Last oral intake: >/= 8 hours ASA classification: III Emergent: no Anesthetic plan: proceed Anesthesia type and monitoring: general GIVS and standard monitoring Results Review: All pre-operative results and documents have been reviewed as part of the pre-operative evaluation. Informed Consent: The patient's anesthetic plan and its attendant risks and benefits were discussed with the patient/family/POA. Questions were solicited and answers provided to the satisfaction of the patient/family/POA.
--- NOTE | 2023-07-08 10:50 | PM.HPGS ---
History of Present Illness History of Present Illness Consent: Risks, benefits, and alternatives have been discussed and questions answered. Patient agrees to proceed with procedure. Chief complaint: GERD, dysphagia Narrative: Dc Mendez is a 67 year old male with sensation of lump in throat, took z-pack but no difference, also gerd on ppi every other day for quite sometime, had EGD but years ago Review of Systems Constitutional: Constitutional: Denies headache(s) and Denies weakness Eyes: Eyes: Denies blurry vision ENT: Reports Normal hearing present, Denies headache(s) and Denies neck pain Cardiovascular: Cardiovascular: Denies chest pain and Denies dyspnea Respiratory: Respiratory: Denies dyspnea Gastrointestinal: Gastrointestinal: Reports no additional gastrointestinal complaints Genitourinary: Genitourinary: Denies dysuria Musculoskeletal: Musculoskeletal: Denies neck pain Integumentary/Breasts: Skin/Breast: Denies dry skin Neurologic: Reports Normal hearing present, Denies headache(s) and Denies weakness Psychiatric: Psychiatric: Denies anxiety Endocrine: Endocrine: Denies change in body appearance Hematologic/Lymphatic: Hematologic/Lymphatic: Denies easy bleeding Allergic/Immunologic: Allergic/Immunologic: Denies urticaria [facility] Past Medical History Medical History (Updated 07/08/23 @ 10:51 by Brandin Fatima MD) Arthritis of knee, left Chronic GERD Erectile dysfunction Hypertension Lump in throat Restless leg syndrome Sleep apnea in adult Vertigo Family History Family History Father Diabetes mellitus Hypertension Family history of malignant neoplasm Sibling Family history of elevated blood lipids Mother Family history of cardiovascular disease Family history of coronary artery disease Other Family history of arthritis Family history of lung disease Social History Social History (Updated 05/20/23 @ 10:56 by Luara Olivia) Social History: Caffeine-coffee Smoking status: Never smoker Second hand tobacco smoke exposure: No Additional smoking assessment comments: PT DENIES ALL FORMS OF TOBACCO USE Alcohol intake: current Drinks per week: 2 Substance use: never Substance use type: does not use Lack of Transportation: No Lack of Food: Never True Current Housing: I Have Housing Concerned About Future Housing: No Difficulty Paying Gas/Electric Bills: No Difficulty Paying for Meds: No Currently Unemployed: No Education: Associate Degree Difficulty w/ Childcare or Family Care: No Living arrangements: with family Gender identity (if verbalized by the patient): Male Spiritual care concerns: No Meds Home Medications and Allergies Home Medications Medication Instructions Recorded Confirmed Type olmesartan 40 mg tablet 40 mg PO DAILY #90 tabs 09/24/22 07/06/23 Rx sildenafil (pulm.hypertension) 20 20 mg PO DAILY PRN sexual activity 02/23/23 07/06/23 Rx mg tablet #30 tabs rabeprazole 20 mg tablet,delayed 20 mg PO EVERY OTHER DAY #45 tabs 05/13/23 07/06/23 Rx release Allergies Allergy/AdvReac Type Severity Reaction Status Date / Time lisinopril AdvReac Unknown Cough Verified 07/08/23 09:56 Vital Signs Vital Signs - 24 hr 07/08/23 09:58 Temperature 97.8 F Pulse Rate 78 Respiratory Rate 20 Blood Pressure 157/87 H Pulse Oximetry 99 Oxygen Delivery Room Air Exam Const: General: comfortable and no acute distress HENMT: Face/Nose/Sinus: Normal nares present Eyes: General: appearance normal, both eyes and all related structures Neck: Neck: no JVD Resp: Auscultation: clear to auscultation bilaterally Cardio: Rate: regular rate Rhythm: regular rhythm GI: Inspection: non-distended GI Palp: Yes Soft to palpation Skin: General skin exam: normal color Neuro: General: gait normal Speech: normal speech Extrem: General
[2023-07-08 11:03] VITALS: BP 119/78; PULSE 79; RESP 20; O2SAT 99
[2023-07-08 11:13] VITALS: BP 122/84; PULSE 77; RESP 20; O2SAT 99
[2023-07-08 11:23] VITALS: BP 124/75; PULSE 72; RESP 20; O2SAT 99
== END 2023-07-08 11:31 | disposition home or self-care (01) ==
PROVIDERS: PCP Family Medicine; Visit Provider Internal Medicine Gastroenterology
PROC: 0DJ08ZZ Inspection of Upper Intestinal Tract, Via Natural or Artificial Opening Endoscopic (ICD-10-PCS; CPT 43235; principal; 2023-07-08 11:00)
DX: K21.9 Gastro-esophageal reflux disease without esophagitis (principal)
CPT/HCPCS: 43239; 88305; J2704; J7120

== ENCOUNTER 2023-07-23 09:37 | Emergency (ER) | payer MEDICARE, SELFPAY ==
--- NOTE | ~2023-07-23 | CT_ITS ---
EXAMINATION: CT cervical spine wo con DATE: 07/23/2023 10:19 INDICATION: Fall with head injury TECHNIQUE: Computed tomography (CT) of the cervical spine was performed without intravenous contrast. Automated exposure control and iterative reconstruction technique were employed. The dose-length pro duct was 465.87 mGy-cm. COMPARISON: None FINDINGS: Straightening of the normal cervical lordosis. Vertebral body heights are normal. No fracture. Severe osteoarthritis at the cervicothoracic junction. There are prominent anterior osteophytes at C5-C6 th rough C7-T1 suggestive of bridging osteophytes at multiple levels consistent with diffuse idiopathic skeletal hyperostosis (DISH). Moderate disc height loss at C7-T1. Mild disc height loss at C2-C3 thr ough C4-C5 with disc calcification at C4-C5. Anterior fusion across the uncovertebral joints and endp late margins at C3-C5. Posterior hypertrophic changes result in mild central canal stenosis at both o f these levels. Multilevel severe cervical facet osteoarthritis with posterior fusion across the face t joints bilaterally at C3-C5. Moderate neural foraminal stenosis on the left at C3-C4 and mild neura l from stenosis at many of the remaining cervical levels on the left and right. Minimal atherosclerot ic calcification is at the bilateral carotid bulbs. Cervical soft tissues are otherwise unremarkable. Visualized apices of lungs are clear. IMPRESSION: 1. Moderate cervical spondylosis. No acute osseous abnormality. Reviewed, dictated and finalized at location A. [facility]
--- NOTE | ~2023-07-23 | CT_ITS ---
EXAMINATION: CT brain wo con DATE: 07/23/2023 10:18 INDICATION: Fall with head injury and neck pain TECHNIQUE: Computed tomography (CT) of the head was performed without intravenous contrast. Sagittal and coronal reconstructions were performed. The mA was adjusted according to patient size. Iterative reconstruction technique was employed. The dose-length product was 605.33 mGy-cm. COMPARISON: head CT dated 01/19/2008 FINDINGS: Small scalp contusion posterior to the vertex. No fracture. No acute intracranial hemorrhage, acute i nfarction or abnormal extra axial fluid collection. Ventricles are normal and symmetric. No mass/mass effect. Moderate mucosal thickening and small amount of dependently layering mucus in the left maxil fady sinus suggestive of acute sinusitis. The orbits and mastoid air cells are normal. IMPRESSION: 1. No fracture or acute intracranial process. 2. Mucosal thickening and bubbly mucus in the left maxillary sinus. Correlate for acute sinusitis. Reviewed, dictated and finalized at location A. 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 No fracture or acute intracranial process. 2. Mucosal thickening and bubbly mucus in the left maxillary sinus. Correlate f or acute sinusitis.
[2023-07-23 09:52] VITALS: BP 170/102; PULSE 80; RESP 16; TEMP 36.4; O2SAT 100
[2023-07-23 14:08] VITALS: BP 147/94; PULSE 94; RESP 18; TEMP 36.5; O2SAT 98
--- NOTE | 2023-07-23 14:14 | ED.HEATRA ---
HPI - Head Injury General Chief complaint: Head Injury Stated complaint: fall/hi/loc/confusion/no thinners Time Seen by Provider: 07/23/23 14:02 History of Present Illness HPI Narrative: Patient is a 68-year-old male who presents to the emergency department this afternoon status post a slip and fall at the grocery store. Patient states that he went to the grocery store to buy some milk and do not and when he was leaving the store in the parking lot he slipped on ice and fell backwards hitting the back of his head on the ground. Patient was able to get back up and did drive home, however, patient drove to his previous address from 2 years ago. Once he got there, patient realized that that is his daughter Fidelia royal to his acute address. Once he got and he told his that high pain and she insisted that he come to the emergency department for further evaluation. Patient states that he feels fine and is only complaining of mild neck pain but denies any headaches, any focal weakness, any numbness and tingling, changes in his vision, dizziness or lightheadedness. Patient also denies any chest pain or shortness of breath, any nausea, vomiting, abdominal pain, fevers or chills. There are no other modifying, alleviating, or precipitating factors at this time. Related Data Allergies Allergy/AdvReac Type Severity Reaction Status Date / Time lisinopril AdvReac Unknown Cough Verified 07/23/23 14:12 Review of Systems Review of Systems: All systems are reviewed and are negative unless stated otherwise in the HPI. PENDING SALE TO [facility] Past Medical History Medical History Arthritis of knee, left Chronic GERD Erectile dysfunction Hypertension Lump in throat Restless leg syndrome Sleep apnea in adult Vertigo Family History Family History Father Diabetes mellitus Hypertension Family history of malignant neoplasm Sibling Family history of elevated blood lipids Mother Family history of cardiovascular disease Family history of coronary artery disease Other Family history of arthritis Family history of lung disease Social History Social History Social History: Caffeine-coffee Smoking status: Never smoker Second hand tobacco smoke exposure: No Additional smoking assessment comments: PT DENIES ALL FORMS OF TOBACCO USE Alcohol intake: current Drinks per week: 2 Substance use: never Substance use type: does not use Lack of Transportation: No Lack of Food: Never True Current Housing: I Have Housing Concerned About Future Housing: No Difficulty Paying Gas/Electric Bills: No Difficulty Paying for Meds: No Currently Unemployed: No Education: Associate Degree Difficulty w/ Childcare or Family Care: No Living arrangements: with family Gender identity (if verbalized by the patient): Male Spiritual care concerns: No Exam Narrative: General: Alert, awake, afebrile, in no acute distress. HEENT: PERRL, no rhinorrhea, no post nasal drip, oropharynx clear. Neck: Trachea midline, no JVD, no lymphadenopathy, no midline cervical spine tenderness to palpation, C-collar in place. Cardiovascular: Regular rate and rhythm, no murmurs, rubs or gallops, no peripheral edema. Respiratory: Clear to auscultation bilaterally, no tachypnea, no wheezing, no rhonchi, no rubs, no respiratory distress. Abdomen: Soft, nontender, nondistended, no rebound, no guarding, no peritoneal signs. Musculoskeletal: No joint swelling or deformity, normal muscle tone. Back: No thoracic or lumbar midline tenderness to palpation, no step-offs or deformities. Skin: No rashes or petechia, no signs of infection. Psychiatric: Alert and oriented, normal behavior and judgment for situation. Neurological: Alert and oriented to person, place, and time. Follows all commands. 5/5
== END 2023-07-23 14:48 | disposition home or self-care (01) ==
LOC: ANHED 14:19
PROVIDERS: Emergency Provider Emergency Medicine; PCP Family Medicine
DX: S09.90XA Unspecified injury of head, initial encounter (principal); I10 Essential (primary) hypertension; M17.12 Unilateral primary osteoarthritis, left knee; K21.9 Gastro-esophageal reflux disease without esophagitis; G25.81 Restless legs syndrome; G47.30 Sleep apnea, unspecified; W00.0XXA Fall on same level due to ice and snow, initial encounter
CPT/HCPCS: 70450; 72125; 99284; L0140

== ENCOUNTER 2024-03-09 08:13 | Outpatient (CLI) | payer MEDICARE, OTHER, SELFPAY ==
[2024-03-09 16:40] LABS: Alanine Aminotransferase 28 U/L (6-50); Albumin Level 4.5 g/dL (3.5-5.1); Alkaline Phosphatase 50 U/L (38-126); Anion Gap 8 mmol/L (4-12); Aspartate Amino Transferase 28 U/L (17-59); Bilirubin,Total 0.5 mg/dL (0.2-1.3); Blood Urea Nitrogen 16 mg/dL (9-20); Calcium 9.3 mg/dL (8.4-10.2); Carbon Dioxide 30 mmol/L (22-30); Chloride 100 mmol/L (98-107); Estimated Glomerular Filt Rate > 60; Glucose 101 mg/dL (65-110); Potassium 4.4 mmol/L (3.4-5.0); Sodium 138 mmol/L (137-145)
[2024-03-09 17:53] LABS: Hemoglobin A1C 5.9 % (<5.7)
== END 2024-03-09 08:14 | disposition home or self-care (01) ==
PROVIDERS: PCP Family Medicine; Visit Provider Family Medicine
DX: R73.02 Impaired glucose tolerance (oral) (principal); I10 Essential (primary) hypertension
CPT/HCPCS: 36415; 80053; 83036

== ENCOUNTER 2024-07-02 08:13 | Outpatient (CLI) | payer MEDICARE, OTHER, SELFPAY ==
--- OUTSIDE RECORDS SUMMARY | 2024-07-02 08:22 | XMS_ITS | Clinical Summary ---
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 Gender Identity Not on file Sexual Orientation Not on file Plan of Treatment Health Maintenance Due Date Last Done Comments Hepatitis C Virus (HCV) Screening 1955 TdaP Immunization 1955 Colonoscopy 2000 Colorectal Cancer Screening 2000 Cologuard 2005 Immunochemical Fecal Occult Blood 2005 Pneumococcal Immunization (5 0+ years) (1 of 1 - PCV) 2005 Zoster Immunization (1 of 2) 2005 PSA Discussion 2010 Influenza Immunization (#1) 2024 SARS-COV-2 Immunization ( - 2023-25 season) 2024 Respiratory Syncytial Virus (RSV) Immunization (Adult) (1 - 1-dose 75+ series) 2030 Hepatitis B Immunization Aged Out No longer eligible based on patient's age to complete this topic Meningococcal Immunization (ACWY) Aged Out No longer eligible based on patient's age to complete this topic Rotavirus Immunization Aged Out No lo nger eligible based on patient's age to complete this topic
--- OUTSIDE RECORDS SUMMARY | 2024-07-02 08:22 | XMS_ITS | Data Portability ---
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 Came in today for re-evaluation of his left knee. We did knee replacement surgery on him March last year. Overall he has been doing very well. He has not had any symptoms in his left knee. He recently was at his primary care doctor and his primary noticed swelling in the left knee and thought it might be best to have it evaluated by us. Again at this point patient is having no symptoms. He recently went to a trip to [place]. He walked to [employer] [place] [place]. He states that 1 day he [facility] any symptoms. Physical exam 67-year-old male alert pleasant. He is walking very well without limp today. He has just a trace effusion in the left knee. He still has soft tissue swelling around the knee. No redness or warmth noted. Range of motion is from 0-130 degrees. He has excellent stability in both flexion extension. No edema in either lower extremity today. Impression: Patient's left total knee appears to be doing very well. He does not have any significant effusion in the knee. He does have soft tissue swelling which is typical around the knee following total knee arthroplasty. We talked that this can take 9 months to a year for it to completely resolve. Again he is having no symptoms in the knee. He does have good range of motion. I encouraged him to do his exercises on a daily basis at least for the 1st year to the does not lose any ground with his range of motion. He is scheduled see us back this March for his 1 year follow-up. If his symptoms change or worsen he will call otherwise we will plan on seeing him back as needed. 20 minutes was spent in treatment patient more have this [id number] conversation Not available 10/18/2022 15:30:37 03/25/2023 03/25/2023 HPI: Patient returns. He is 1 year out from left total knee arthroplasty. He is doing very well with regard to his knee. No in time he really notices it when he is going up and down stairs it still feels a awkward to do this but he is able to go 1 ft after the other. There is no pain with this it just feels he states. Otherwise he is back to all activities any symptoms. He is comfortable and happy with his knee replacement. Physical exam: 67-year-old male alert pleasant. He walks very well today. He does have mild effusion in the left knee. No redness or warmth noted. Range of motion is from 0-135 degrees. He has excellent stability in both flexion and extension. No increased swelling in either lower extremity. Impression: 67-year-old male who is 1 year out left total knee arthroplasty. He has excellent range of motion stability in the knee. He is happy with his results. 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 If he develops significant symptoms we can always try injection in the future and he will keep that in mind. Otherwise he can use iajz-eyr-nehecyx anti-inflammator ies for symptoms as well. Long-term risk of infection was discussed. We see him back in 5 years for routine x-ray surveillance or sooner if he has problems. 20 minutes was spent in treatment patient more than half of this in [id number] conversation Not available 03/25/2023 11:00:42 Plan of Treatment Reminders Order Date Submit Date Provider Last Modified By Organization Details Last Modified Time Details Appointments None record ed. Lab None record ed. Referral None record ed. Procedures None record ed. Surgeries None record ed. Imaging XR, knee 023 03/25/20 23 [email or web address] [facility] [place], [address], [place], [address], 17:22:55 Medication Orders None record ed. Patient TargetsNo targets recorded. Patient InstructionsNo instructions recorded. Reason for Referral None Reported. Results Created Date Observation Date Name Description Value Unit Range Abnormal Flag Note LastModifiedBy Organization Detail LastModifiedTime 03/17/20 22 03/04/2022 cuca morgan am No observ ation record ed. [id number] Not Available 08/04/2022 14:12:59 03/24/20 22 03/24/2022 XR, knee No observ ation record ed. [id number] [facility], [place], [address], 08/04/2022 14:12:59 03/26/20 22 03/26/2022 cristofer s study , upper extre mity, compl ete No observ ation record ed. [id number] [facility], [place], [address], 08/04/2022 14:12:59 05/05/20 22 XR, knee No observ ation record ed. [id number] [facility] [address] [facility] [address], [address], 08/04/2022 14:12:59 03/25/20 23 XR, knee No observ ation record ed. [email or web address] [facility] [address] [facility] [address], [address], 03/25/2023 10:58:12 07/23/19 24 07/23/2023 CT, brain , w/o contr ast No observ ation record ed. [email or web address] [address], [place], [address], 08/17/2023 11:13:47 07/23/19 24 07/23/2023 CT, cervi tosha spine , w/o contr ast No observ ation record ed. [email or web address] [address], [place], [address], 08/17/2023 11:13:27 Result Notes None recorded. Problems Name Problem SNOMED Code Status Onset Date Resolution Date Notes Provider Name and Address Organization Details Recorded Time Osteoarthriti s [id number] Active 2021 Not Available [facility] 14:10:44 Problem Notes None recorded. Procedures Surgical History None recorded. Imaging Results Imaging Date Name Status LastModified by Organization Details LastModified Time 05/05/2022 XR, knee completed [id number] [facility] [place] [address] [facility] [address], [address], 08/04/2022 14:12:59 03/24/2022 XR, knee completed [id number] [place] [address], [address], 08/04/2022 14:12:59 03/26/2022 venous study, upper extremity, complete completed [id number] [facility], [place], [address], 08/04/2022 14:12:59 03/04/2022 electrocardiogram completed [id number]. [id number] Information not available 08/04/2022 14:12:59 03/25/2023 XR, knee completed [email or web address] [facility] [address] [facility] [address], [place], [address], 03/25/2023 10:58:12 07/23/2023 CT, brain, w/o contrast completed [address] [place] [address], [id number], 08/17/2023 11:13:47 07/23/2023 CT, cervical spine, w/o contrast completed [address] [place] [address], [address], 08/17/2023 11:13:27 Procedure Notes None recorded. Medical Equipment None Reported. Medications Name Sig Start Date Stop Date Status Note LastModified by Organization Details LastModified Time celecoxib 200 mg capsule Take 1 capsule twice a day by oral route. 10/18 completed Not Available Not Available Not Available amoxicillin 500 mg capsule TAKE 1 CAPSULE BY MOUTH EVERY 8 HOURS 03/25 completed Not Available Not Available Not Available rabeprazole 20 mg tablet,margarito yed release TAKE 1 TABLET BY MOUTH EVERY OTHER DAY active Not Available Not Available No t Available azithromyci n 250 mg tablet TAKE 2 TABLETS BY MOUTH TODAY, THEN TAKE 1 TABLET DAILY FOR 4 DAYS 03/25 completed Not Available Not Available Not Available benzonatate 200 mg capsule 04/01 completed Not Available Not Available Not Available bupivacaine HCl 0.5 % (5 mg/mL) injection solution In office injection administe red by the provider 01/18 completed Not Available Not Available Not Available acetaminoph en 500 mg tablet TAKE 2 TABLETS BY MOUTH EVERY 6 HOURS 05/05 completed Not Available Not Available Not Available amoxicillin 500 mg tablet TAKE 1 TABLET BY MOUTH EVERY 8 HOURS FOR 10 DAYS 01/18 completed Not Available Not Available Not Available Kenalog 10 mg/mL suspension for injection In office injection administe red by the provider 01/18 completed [facility]: [phone] Not Available Not Available Not Available benzonatate 100 mg capsule 100 MG ORALLY THREE TIMES A DAY NEEDED FOR COUGH 03/25 completed Not Available Not Available Not Available cephalexin 500 mg capsule 10/18 completed Not Available Not Available Not Available ferrous sulfate 325 mg (65 mg iron) tablet TAKE 1 TABLET BY MOUTH TWICE A DAY 04/01 completed Not Available Not Available Not Available prednisone 50 mg tablet TAKE 1 TABLET BY MOUTH EVERY DAY active Not Available Not Available No t Available codeine 10 mg-guaifene sin 100 mg/5 mL oral liquid TAKE 5 ML ORALLY EVERY 6 HOURS NEEDED FOR COUGH active Not Available Not Available No t Available mupirocin 2 % topical ointment APPLIED DIRECTED IN BOTH NOSTRILS TWICE DAILY FOR 5 DAYS STARTING 03-19-2203/25 completed Not Available Not Available Not Available fluticasone propionate 50 mcg/actuati on nasal spray,suspe nsion USE 2 SPRAYS IN EACH NOSTRIL DAILY 04/07 completed Not Available Not Available Not Available Hibiclens 4 % topical liquid PLEASE SEE ATTACHED FOR DETAILED DIRECTION S 03/25 completed Not Available Not Available Not Available oxycodone 5 mg tablet Take 1 tablet every 4 hours by oral route. 10/18 completed Not Available Not Available Not Available olmesartan 20 mg tablet 01/18 completed Not Available Not Available Not Available olmesartan 40 mg tablet TAKE 1 TABLET BY MOUTH EVERY DAY active Not Available Not Available No t Available Senna Plus 8.6 mg-50 mg tablet TAKE 2 TABLETS BY MOUTH TWICE A DAY 05/05 completed Not Available Not Available Not Available sildenafil (pulmonary hypertensio n) 20 mg tablet TAKE ONE TABLET BY MOUTH NEEDED FOR SEXUAL ACTIVITY. ADMINISTE R DOSES AT LEAST 4-6 HOURS APART. active Not Available Not Available No t Available acetaminoph en 04/21 completed Not Available Not Available Not Available lidocaine (PF) 10 mg/mL (1 %) injection solution In office injection administe red by the provider 03/29 completed Not Available Not Available Not Available Heartburn and Acid Reflux-Aloe 2019 active Not Available Not Available Not Avai lable sodium,pota ssium,mag sulfates 17.5 gram-3.13 gram-1.6 gram oral soln TAKE DIRECTED 03/25 completed Not Available Not Available Not Available Eliquis 2.5 mg tablet 04/21 completed Not Available Not Available Not Available Vitals Date Recorded Body height Provider Name an d Address Organization Details Last Updated DateTime 04/07/2022 190.5 cm Not Available [facility] 3 14:10:11 Date Recorded Body height Provider Name an d Address Organization Details Last Updated DateTime 04/21/2022 190.5 cm Not Available [facility] 3 14:10:11 Date Recorded Body height Provider Name an d Address Organization Details Last Updated DateTime 05/05/2022 190.5 cm Not Available [facility] 3 14:10:11 Date Recorded Body height Provider Name an d Address Organization Details Last Updated DateTime 10/18/2022 190.5 cm MAYELA Garrett [place] [employer] 10/18/2022 15:10:50 Date Recorded Body height Provider Name an d Address Organization Details Last Updated DateTime 03/25/2023 190.5 cm MAYELA Garrett [place] [employer] [facility] 03/25/2023 10:28:13 Social History Question Answer Notes LastModified by Organizat ion Details LastModified Time What Is Your Level Of Alcohol Consumption? Occasional [id number] Information not available 08/04/2022 Do You Or Have You Ever Used Any Other Forms Of Tobacco Or Nicotine? No [id number] Information not available 08/04/2022 Sex: Unknown Functional Status None recorded. Mental Status None recorded. Family History Relationship Description Onset Age of this Age Resolved Age Notes LastModified by Organization Details LastModified Time Brother Diabetes mellitus [id number] Not available 08/04/2022 14:09:38 Father Family history of malignant neoplasm [id number] Not available 08/04/2022 14:09:39 Mother Heart disease [id number] Not available 08/04/2022 14:09:39 Medical History Condition Response ARTHRITIS Y Past Encounters Encounter ID Performer Location Encounter Start Date Encounter Closed Date Diagnosis/Indication Diagnosis SNOMED-CT Code Diagnosis ICD10 Code Diagnosis Note [id number] [facility] [address] [place] [address] 09/10/2020 00:00:00 09/10/2020 10:54:55 [id number] [facility] [address] [place] [address] 12/26/2020 00:00:00 12/26/2020 15:20:38 [id number] [facility] [address] [place] [address] 04/01/2021 00:00:00 04/01/2021 14:43:04 [id number] [facility] [address] [place] [address] 07/15/2021 00:00:00 07/15/2021 14:32:26 [id number] [facility] [address] [place] [address] 10/14/2021 00:00:00 10/14/2021 15:00:44 [id number] [facility] [address] [place] [address] 01/18/2022 00:00:00 01/18/2022 15:29:49 [id number] [facility] [address] [place] [address] 03/26/2022 00:00:00 03/26/2022 12:25:18 [id number] [facility] [address] [place] [address] 03/29/2022 00:00:00 03/29/2022 17:09:18 [id number] [facility] [address] [place] [address] 04/07/2022 00:00:00 04/07/2022 15:00:41 [id number] [facility] [address] [place] [address] 04/21/2022 00:00:00 04/21/2022 12:38:19 [id number] [facility] [address] [place] [address] 05/05/2022 00:00:00 05/05/2022 11:17:50 [id number] BRIE Cantu [facility] [address] [place] [address] 10/18/2022 15:09:15 10/18/2022 15:31:15 History of left total knee replacement [id number] Z96.246 [id number] BRIE Cantu [facility] [address] [place] [address] 03/25/2023 10:08:51 03/25/2023 11:20:00 History of left total knee replacement [id number] Z96.652 Health Concerns Section Related Observation LastModified by Organization Detai ls LastModified Time None Recorded Concern Status LastModified by Organization Details LastModified Time None Recorded Advance Directives Directive None Recorded Payers Encounter Date Sequence Insurance Name Policy Number Policy Eid Covered Member ID Eid Member ID Guarantor Name 10/18/2022 1 [facility] Madhu Mendez [id number] Madhu Mendez 10/18/2022 2 [employer] - PLAN F (MEDICARE SUPPLEMENT) Madhu Mendez [id number] Madhu Mendez 03/25/2023 1 MEDICARE B: [employer] - RAILROAD MEDICARE Madhu Mendez [id number] Madhu Mendez 03/25/2023 2 [employer] - PLAN F (MEDICARE SUPPLEMENT) Madhu Mendez [id number] Madhu Mendez
[2024-07-02 16:35] LABS: Alanine Aminotransferase 33 U/L (6-50); Albumin Level 4.3 g/dL (3.5-5.1); Alkaline Phosphatase 51 U/L (38-126); Anion Gap 9 mmol/L (4-12); Aspartate Amino Transferase 40 U/L (17-59); Bilirubin,Total 0.6 mg/dL (0.2-1.3); Blood Urea Nitrogen 14 mg/dL (9-20); Calcium 8.9 mg/dL (8.4-10.2); Carbon Dioxide 29 mmol/L (22-30); Chloride 101 mmol/L (98-107); Estimated Glomerular Filt Rate > 60; Glucose 92 mg/dL (65-110); Potassium 4.5 mmol/L (3.4-5.0); Sodium 139 mmol/L (137-145)
== END 2024-07-02 08:14 | disposition home or self-care (01) ==
LOC: ANHGOSHLAB 08:14
PROVIDERS: PCP Family Medicine; Visit Provider Family Medicine
DX: R73.02 Impaired glucose tolerance (oral) (principal)
CPT/HCPCS: 36415; 80053; 83036

== ENCOUNTER 2024-08-17 09:59 | Emergency (ER) | payer MEDICARE, OTHER, SELFPAY ==
--- NOTE | ~2024-08-17 | XR_ITS ---
EXAMINATION: XR foot LT min 3V DATE: 08/17/2024 10:22 INDICATION: Left foot injury and pain. TECHNIQUE: 4 views of left foot were obtained. COMPARISON: None. FINDINGS: Alignment is normal. No fracture. There is mild osteoarthritis of first metatarsophalangeal joint and some of the interphalangeal joints. There are enthesophytes at the posterior and plantar a spects of calcaneal tuberosity. IMPRESSION: 1. Mild polyarticular osteoarthritis. Reviewed, dictated and finalized at location L.
--- NOTE | 2024-08-17 10:11 | ED_ITS ---
HPI - Extremity Injury (Lower) General Chief Complaint: Extremity Injury, Lower Stated Complaint: L FOOT PAIN Time Seen by Provider: 08/17/24 09:59 Source: patient Mode of arrival: ambulatory Limitations: no limitations History of Present Illness HPI Narrative: Patient is a 69-year-old male who presents with left foot pain for 5 days. States he leaned on it sideways and then started having pain to his arch and l ateral foot. Reports swelling has improved. Patient still able to ambulate normally. Denies any numbness, tingling or weakness to foot. Related Data Allergies Allergy/AdvReac Type Severity Reaction Status Date / Time lisinopril AdvReac Unknown Cough Verified 08/17/24 10:09 Review of Systems Review of Systems: All systems reviewed & are unremarkable except as noted in HPI and below Constitutional: Constitutional: Denies body ache(s), Denies chills, Denies fatigue, Denies fever(s), Denies headache(s), Denies malaise and Denies weakness Eyes: Eyes: Denies blurry vision, Denies irritation and Denies loss of vision ENT: Denies otalgia, Denies headache(s), Denies nasal discharge, Denies sinus pain and Denies sore throat Cardiovascular: Cardiovascular: Denies chest pain, Denies irregular heart rhythm and Denies dyspnea Respiratory: Respiratory: Denies dyspnea Gastrointestinal: Gastrointestinal: Denies abdominal pain, Denies melena, Denies hematochezia, Denies diarrhea, Denies nausea and Denies vomiting Musculoskeletal: Musculoskeletal: Denies back pain, Denies myalgias and Reports arthralgias Integumentary/Breasts: Skin/Breast: Denies pruritus and Denies rash Neurologic: Denies headache(s), Denies loss of vision and Denies weakness Psychiatric: Psychiatric: Reports no additional psychiatric complaints Endocrine: Endocrine: Denies fatigue PMFSH Past Medical History Medical History Lump in throat Chronic GERD COVID-19 Squamous cell skin cancer Ingrown toenail Vertigo Hypertension Restless leg syndrome Erectile dysfunction Squamous cell carcinoma, face Surgical History Surgical History Total knee replacement status Left TKR Family History Family History Father Diabetes mellitus Hypertension Family history of malignant neoplasm Sibling Family history of elevated blood lipids Mother Family history of cardiovascular disease Family history of coronary artery disease Other Family history of arthritis Family history of lung disease Social History Social History Social History: Caffeine-coffee Smoking status: Never smoker Second hand tobacco smoke exposure: No Additional smoking assessment comments: PT DENIES ALL FORMS OF TOBACCO USE Alcohol intake: current Drinks per week: 2 Substance use: never Substance use type: does not use Do You Feel Safe in your Home?: Yes Lack of Transportation: No Lack of Food: Never True Current Housing: I Have Housing Concerned About Future Housing: No Difficulty Paying Gas/Electric Bills: No Difficulty Paying for Meds: No Currently Unemployed: No Education: High School Diploma/GED Difficulty w/ Childcare or Family Care: No Living arrangements: with family Gender identity (if verbalized by the patient): Male Spiritual care concerns: No Comments At time of signature, agree with nursing past medical, surgical, social and family history. There is no relevant family history pertinent to the presenting complaint. Exam Const: General: cooperative, healthy appearing, comfortable, no acute distress and well nourished Nutritional Appearance: well nourished Orientation/consciousness: patient oriented x3 Limitations: no limitations HENMT: Head: normal to inspection, normocephalic and atraumatic Ears: hearing grossly normal bilaterally and external ears normal Face/Nose/Sinus: Normal external nose present, normal facial exam and face symmetric Face and sinus: normal facial exam and face symmetric Mouth: Yes lip normal Eyes: General: appearance normal, both eyes and all related structures Alignment and Position: alignment normal and position normal Periorbital: periorbital findings normal Eyelids: eyelids normal Pupils: Equal, round and reactive pupils present EOM: EOMs intact bilaterally Neck: Neck: normal visual inspection, full ROM and supple Chest: Chest palpation & inspection: normal inspection of the chest Resp: Effort & Inspection: normal respiratory effort and able to speak in complete sentences Auscultation: clear to auscultation bilaterally Cardio: Rate: regular rate Rhythm: regular rhythm Heart sounds: S1 normal heart sound present and S2 normal heart sound present GI: Inspection: normal to inspection Skin: General skin exam: normal color and no rashes or lesions noted Neuro: General: patient oriented x3 and moves all extremities Cranial nerves: Yes Equal, round and reactive pupils present Speech: normal speech Gait exam (Neuro): Normal gait present Extrem: General: normal to inspection, full ROM and no edema Left lower extremity: ankle Details: normal to inspection and normal ROM; no tenderness, no swelling and achilles tendon exam normal and foot Details: normal capillary refill, normal to inspection, tenderness Location: of the plantar foot (mid foot arch) and of the lateral foot Location: in the mid-section, toes with normal ROM, vascular exam Details: dorsalis pedis pulse present and normal capillary refill and tendon exam active flexion normal of all toes and active extension normal of all toes; no ecchymosis Psych: Appearance: grossly normal and well kempt Mental Status: mental status grossly normal Speech and movement: Normal speech and movement present Affect: normal affect Attitude: cooperative Thought process: Normal thought process present Course Course Emergency Course: Patient is aware of diagnosis, understands and agrees to treatment plan. Anticipatory guidance given. Patient agrees to follow-up as directed and is aware of reasons to seek care at the emergency department. Portions of this record may have been created with voice recognition software Level of Care: Express Care Visit Vital Signs Vital signs: Reviewed MDM - Extremity Injury (Lower) MDM Narrative Medical decision making narrative: Pt well hydrated appearing, in no respiratory distress, hemodynamically stable. Recommend supportive care. The patient is stable at time of discharge the clinical impression was discussed and the patient was given the opportunity to ask questions, which were addressed as completely as possible given the information available at present. Anticipatory guidance and return to care precautions were discussed and the importance of primary care follow-up was stressed and encouraged. The patient voiced understanding of the plan, indications to return, and the need for follow-up. Exam findings show no acute concerns or changes Patient is appropriate for outpatient treatment and follow-up. Differential Diagnosis Differential diagnosis: Likely ankle sprain and strain, fracture of toe, ankle fracture and other (Foot fracture, foot strain) Medical Records Attestation: I reviewed the patient's medical records. Imaging Data Radiologist's impression: EXAMINATION: XR foot LT min 3V DATE: 08/17/2024 10:22 INDICATION: Left foot injury and pain. TECHNIQUE: 4 views of left foot were obtained. COMPARISON: None. FINDINGS: Alignment is normal. No fracture. There is mild osteoarthritis of first metatarsophalangeal joint and some of the interphalangeal joints. There are enthesophytes at the posterior and plantar aspects of calcaneal tuberosity. IMPRESSION: 1. Mild polyarticular osteoarthritis. Discharge Plan Discharge Clinical Impression: Foot sprain Qualifiers: Encounter type: initial encounter Laterality: left Qualified Code(s): S93.602A - Unspecified sprain of left foot, initial encounter Osteoarthritis Qualifiers: Osteoarthritis location: foot Osteoarthritis type: unspecified Laterality: left Qualified Code(s): M19.072 - Primary osteoarthritis, left ankle and foot Patient Disposition: Home, Self-Care Condition: Stable Instructions: Osteoarthritis (ED), Foot Sprain (ED) Additional Instructions: Xray showed no fracture. Minimize activities that aggravate the condition The RICE protocol. Follow the RICE protocol as soon as possible after your injury: Rest your foot by not walking on it. Ice should be immediately applied to keep the swelling down. It can be used for 20 to 30 minutes, three or four times daily. Do not apply ice directly to your skin. Compression dressings, bandages or mary-wraps will immobilize and support your injured foot. Elevate your foot above the level of your heart as often as possible during the first 48 hours. Medication: Nonsteroidal anti-inflammatory drugs (NSAIDs) such as ibuprofen and naproxen can help control pain and swelling. Because they improve function by both reducing swelling and controlling pain, they are a better option for mild sprains than narcotic pain medicines. Please schedule a follow-up visit with your personal physician for further evaluation and treatment within 1week OR If your symptoms persist, change or worsen significantly before you can contact your personal physician then please, without delay, go to the emergency department for further evaluation. Your blood pressure was elevated above 120/80 today at Urgent Care. This puts you above the threshold for follow up visit with a primary care provider. High blood pressure does not usually cause any symptoms, however it may lead to kidney failure, stroke, heart disease just to name a few if untreated . Many people are anxious when seeing a provider or nurse. As a result, you are not diagnosed with hypertension at this time unless your blood pressure is persistently high at two office visits at least one week apart. Some things that can help lower blood pressure are lifestyle modifications, such as light exercise, decreased salt in diet, and weight loss. It is important to follow up with a PCP about this within 1 week. Patient Language: Togolese Prescriptions: No Action metformin [Glucophage XR] 500 mg tablet extended release 24 hr 500 mg PO DAILY Qty: 90 3RF Rx Instructions: take with supper fluticasone propionate [Flonase Allergy Relief] 50 mcg/actuation spray,suspension 2 spray intranasal DAILY Qty: 16 0RF Rx Instructions: administer into each nostril olmesartan 40 mg tablet 40 mg PO DAILY Qty: 90 1RF rabeprazole 20 mg tablet,delayed release (DR/EC) 20 mg PO DAILY Qty: 90 0RF prednisone 50 mg tablet 50 mg PO DAILY Qty: 7 0RF Follow-up/Referrals: Jon Shepherd MD [Primary Care Provider] - 3 Days Time of Disposition: 10:52
[2024-08-17 10:12] VITALS: BP 157/82; PULSE 66; RESP 16; TEMP 36.7; O2SAT 100
== END 2024-08-17 10:57 | disposition home or self-care (01) ==
PROVIDERS: Emergency Provider Nurse Practitioner Family; PCP Family Medicine
DX: S93.602A Unspecified sprain of left foot, initial encounter (principal); X50.9XXA Other and unspecified overexertion or strenuous movements or postures, initial encounter; K21.9 Gastro-esophageal reflux disease without esophagitis; I10 Essential (primary) hypertension; G25.81 Restless legs syndrome; Z85.828 Personal history of other malignant neoplasm of skin
CPT/HCPCS: 73630; 99213; G0463

== ENCOUNTER 2024-10-26 09:26 | Outpatient (CLI) | payer MEDICARE, OTHER, SELFPAY ==
--- OUTSIDE RECORDS SUMMARY | 2024-10-26 09:30 | XMS_ITS | Clinical Summary ---
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
[2024-10-26 12:38] LABS: Alanine Aminotransferase 30 U/L (6-50); Albumin Level 4.5 g/dL (3.5-5.1); Alkaline Phosphatase 43 U/L (38-126); Anion Gap 9 mmol/L (4-12); Aspartate Amino Transferase 33 U/L (17-59); Bilirubin,Total 0.7 mg/dL (0.2-1.3); Blood Urea Nitrogen 12 mg/dL (9-20); Calcium 9.1 mg/dL (8.4-10.2); Carbon Dioxide 29 mmol/L (22-30); Chloride 101 mmol/L (98-107); Cholesterol 169 mg/dL (0-200); Estimated Glomerular Filt Rate > 60; Glucose 88 mg/dL (65-110); HDL Direct 40 mg/dL; Sodium 139 mmol/L (137-145); Triglycerides 110 mg/dL (<150)
[2024-10-26 12:48] LABS: LDL Cholesterol Direct 91 mg/dL
[2024-10-26 13:07] LABS: Creatinine Urine 87.6 mg/dL
[2024-10-26 13:13] LABS: MALB Creatinine Ratio 11.1 mg/g (0-30); Microalbumin Urine Random 9.7 mg/L (0-16.7)
[2024-10-26 17:15] LABS: Hemoglobin A1C 5.6 % (<5.7)
== END 2024-10-26 09:27 | disposition home or self-care (01) ==
LOC: ANHGOSHLAB 09:28
PROVIDERS: PCP Family Medicine; Visit Provider Family Medicine
DX: E11.9 Type 2 diabetes mellitus without complications (principal)
CPT/HCPCS: 36415; 80053; 80061; 82043; 83036

== ENCOUNTER 2025-02-26 15:09 | Outpatient (CLI) | payer MEDICARE, OTHER, SELFPAY ==
--- NOTE | ~2025-02-26 | US_ITS ---
EXAMINATION: US venous doppler LE , 02/26/2025 15:34 CDT HISTORY: R22.42 - Localized swelling, mass and lump, left lower limb Comparison: None Technique: Burks-scale and color Doppler images were attempted of the lower saphenofemoral junction, common femoral vein,superficial femoral vein, proximal deep femoral vein, proximal deep femoral vein, popliteal vein and posterior tibial veins. Findings: Deep Venous System:Normal flow, augmentation and compressibility. No echogenic thrombus identified. The contralateral saphenofemoral junction appears unremarkable. Superficial Venous SystemWithin the greater saphenous vein there is thrombus with diminished flow. Soft tissues: Soft tissues are unremarkable. Impression: 1. Negative for DVT. Superficial thrombophlebitis Reviewed, dictated and finalized at location A. Impression: 1. Negative for DVT. Superficial thrombophlebitis
--- OUTSIDE RECORDS SUMMARY | 2025-02-26 15:15 | XMS_ITS | Clinical Summary ---
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 Gender Identity Not on file Sexual Orientation Not on file Plan of Treatment Health Maintenance Due Date Last Done Comments Hepatitis C Virus (HCV) Screening 1955 TdaP Immunization 1955 Cologuard 2000 Colonoscopy 2000 Colorectal Cancer Screening 2000 Immunochemical Fecal Occult Blood 2000 Pneumococcal Immunization (5 0+ years) (1 of 1 - PCV) 2005 Zoster Immunization (1 of 2) 2005 SARS-COV-2 Immunization (1 - 2023- season) 2024 Influenza Immunization (#1) 2025 Respiratory Syncytial Virus (RSV) Immunization (Adult) (1 - 1-dose 75+ series) 2030 Hepatitis B Immunization Aged Out No longer eligible based on patient's age to complete this topic Human Papillomavirus (HPV) Immunization Aged Out No longer eligible b ased on patient's age to complete this topic Meningococcal Immunization (ACWY) Aged Out No longer eligible based on patient's age to complete this topic Rotavirus Immunization Aged Out No lo nger eligible based on patient's age to complete this topic
== END 2025-02-26 15:10 | disposition home or self-care (01) ==
PROVIDERS: PCP Family Medicine; Visit Provider Nurse Practitioner Family
DX: R22.42 Localized swelling, mass and lump, left lower limb (principal)
CPT/HCPCS: 93971

== ENCOUNTER 2025-05-15 08:09 | Outpatient (CLI) | payer MEDICARE, OTHER, SELFPAY ==
[2025-05-15 13:35] LABS: Alanine Aminotransferase 30 U/L (6-50); Albumin Level 4.4 g/dL (3.5-5.1); Alkaline Phosphatase 51 U/L (38-126); Anion Gap 5 mmol/L (4-12); Aspartate Amino Transferase 42 U/L (17-59); Bilirubin,Total 0.8 mg/dL (0.2-1.3); Blood Urea Nitrogen 15 mg/dL (9-20); Calcium 9.2 mg/dL (8.4-10.2); Carbon Dioxide 30 mmol/L (22-30); Chloride 102 mmol/L (98-107); Estimated Glomerular Filt Rate > 60; Glucose 93 mg/dL (65-110); Potassium 4.1 mmol/L (3.4-5.0); Sodium 137 mmol/L (137-145); Total Protein 7.5 g/dL (6.3-8.2)
[2025-05-15 17:43] LABS: Hemoglobin A1C 5.8 % (<5.7)
== END 2025-05-15 08:10 | disposition home or self-care (01) ==
LOC: ANHGOSHLAB 08:10
PROVIDERS: PCP Family Medicine; Visit Provider Family Medicine
DX: R73.02 Impaired glucose tolerance (oral) (principal)
CPT/HCPCS: 36415; 80053; 83036